=== PATIENT | male | born 1995 | race Caucasian/White ===

== ENCOUNTER 2020-03-24 18:01 | Emergency (ER) | payer OTHER ==
[~2020-03-24] VITALS: Ht 177.8 cm; Wt 70.3 kg
[2020-03-24 18:02] VITALS: Ht 177.8 cm; Wt 70.3 kg
[2020-03-24 19:37] VITALS: BP 110/59
== END 2020-03-24 19:37 | disposition home or self-care (01) ==
LOC: ED 18:01
DX: S22.32XA Fracture of one rib, left side, initial encounter for closed fracture (principal); S01.01XA Laceration without foreign body of scalp, initial encounter; S40.212A Abrasion of left shoulder, initial encounter; V19.09XA Pedal cycle driver injured in collision with other motor vehicles in nontraffic accident, initial encounter; Y93.I9 Activity, other involving external motion; Y92.413 State road as the place of occurrence of the external cause; Y99.8 Other external cause status
CPT/HCPCS: 90715

== ENCOUNTER 2020-03-26 11:19 | Emergency (ER) | payer OTHER ==
[~2020-03-26] VITALS: Ht 180.3 cm; Wt 74.4 kg
[2020-03-26 11:35] VITALS: BP 112/53; Ht 180.3 cm; Wt 74.4 kg
== END 2020-03-26 11:50 | disposition home or self-care (01) ==
LOC: ED 11:19
DX: S22.32XD Fracture of one rib, left side, subsequent encounter for fracture with routine healing (principal); S01.01XD Laceration without foreign body of scalp, subsequent encounter; J45.909 Unspecified asthma, uncomplicated; V19.9XXD Pedal cyclist (driver) (passenger) injured in unspecified traffic accident, subsequent encounter